=== PATIENT | male | born 1945 | race Caucasian/White ===

== ENCOUNTER 2022-05-09 17:20 | Inpatient (IN) | payer MEDICARE, OTHER ==
[~2022-05-09] VITALS: Ht 152.4 cm; Wt 62.1 kg
[2022-05-09] MEDS ORDERED: HYDROCODONE/APAP 5-325MG TABLET PO PRN (18:00)
[2022-05-09] MEDS ORDERED: ONDANSETRON 4 MG/2 ML VIAL IV PRN (18:00)
[2022-05-09] MEDS ORDERED: ACETAMINOPHEN 325 MG TABLET PO PRN (18:00)
[2022-05-09] MEDS ORDERED: MORPHINE SULFATE 2 MG/1 ML DISP.SYRIN IV PRN (18:00)
[2022-05-09] MEDS ORDERED: ZOLPIDEM 5 MG TABLET PO PRN (18:00)
[2022-05-09] MEDS ORDERED: REMEDY ESSENTIAL ZINC PASTE 113 GM TP PRN (18:00)
[2022-05-09] MEDS ORDERED: MAGNESIUM HYDROXIDE 30 ML LIQUID UDC PO PRN (18:00)
[2022-05-09] MEDS ORDERED: DEXTROSE 50% 50 ML DISP.SYRIN IV PRN (18:15)
[2022-05-09] MEDS ORDERED: INSULIN REGULAR, HUMAN 300 UNIT/3 ML VIAL SQ PRN (18:15)
[2022-05-09 21:00] VITALS: BP 140/82
[2022-05-09] MEDS ORDERED: CEFTRIAXONE 1 G in IV DEXTROSE 5% 50 ML IV SCH (21:00)
[2022-05-09] MEDS: BLOOD SUGAR DIAGNOSTIC 1 EACH STRIP VI SCH (21:00)
[2022-05-10 05:00] VITALS: BP 120/77
[2022-05-10] MEDS: PANTOPRAZOLE SODIUM 40 MG TABLET.DR PO SCH (06:17)
[2022-05-10 07:04] LABS: MEAN CORPUSCULAR HEMOGLOBIN 29.7 uug (23.8-33.4); MEAN CORPUSCULAR VOLUME 89.3 fL (73.0-96.2); PLATELET COUNT (AUTO) 290 K/uL (152-348)
--- NOTE | 2022-05-10 07:30 | NUR ---
REPORT GIVEN TO MERA ASH
[2022-05-10] MEDS: BLOOD SUGAR DIAGNOSTIC 1 EACH STRIP VI SCH ×4 (07:41→21:47)
[2022-05-10 07:52] LABS: BILIRUBIN,DIRECT 0.1 mg/dL (0.0-0.2); BILIRUBIN,TOTAL 0.4 mg/dL (0.2-1.0); CREATININE 1.2 mg/dL (0.6-1.3); PHOSPHOROUS 4.9 mg/dL (2.5-4.9); POTASSIUM 4.3 mmol/L (3.5-5.1); TOTAL PROTEIN, SERUM 8.3 g/dL (6.4-8.2)
[2022-05-10 08:17] LABS: THYROID STIMULATING HORMONE 7.147 mIU/mL (0.358-3.740)
[2022-05-10] MEDS ORDERED: MECLIZINE HCL 25 MG TABLET PO PRN (08:45)
[2022-05-10] MEDS ORDERED: CEFTRIAXONE 1 G in IV DEXTROSE 5% 50 ML IV SCH ×2 (09:00→21:00)
[2022-05-10] MEDS ORDERED: ENOXAPARIN SODIUM 40 MG/0.4 ML DISP.SYRIN SQ SCH (09:00)
--- NOTE | 2022-05-10 10:19 | NUR ---
troponin reported to dr mclean
[2022-05-10] MEDS: DOXYCYCLINE HYCLATE 100 MG TABLET PO SCH ×2 (10:36→20:39)
[2022-05-10 11:57] VITALS: BP 134/70
[2022-05-10 15:51] VITALS: BP 135/78
[2022-05-10] MEDS ORDERED: RIVA20TA PO (17:07)
[2022-05-10] MEDS ORDERED: METF-440 PO (17:07)
[2022-05-10] MEDS ORDERED: LOVA20TA2 PO (17:07)
[2022-05-10] MEDS ORDERED: LOSA25TA27 PO (17:07)
[2022-05-10] MEDS ORDERED: FURO40TA5 PO (17:07)
[2022-05-10] MEDS ORDERED: POTA8TAB3 PO (17:07)
[2022-05-10 20:00] VITALS: BP 115/62
[2022-05-11] VITALS: BP 138/72
[2022-05-11 04:00] VITALS: BP 122/73
[2022-05-11] MEDS: PANTOPRAZOLE SODIUM 40 MG TABLET.DR PO SCH (06:13)
[2022-05-11] MEDS: BLOOD SUGAR DIAGNOSTIC 1 EACH STRIP VI SCH ×2 (07:20→11:30)
[2022-05-11 08:18] LABS: CARBON DIOXIDE 26 mmol/L (21-32); CHLORIDE 103 mmol/L (98-107); CREATININE 1.4 mg/dL (0.6-1.3); GLUCOSE 98 mg/dL (74-106); POTASSIUM 4.3 mmol/L (3.5-5.1); UREA NITROGEN, BLOOD 34 mg/dL (7-18)
[2022-05-11] MEDS: DOXYCYCLINE HYCLATE 100 MG TABLET PO SCH (09:32)
[2022-05-11 11:36] VITALS: BP 143/71
[2022-05-11] MEDS ORDERED: FURO-151 PO (11:53)
[2022-05-11] MEDS ORDERED: POTA10CA43 PO (11:53)
[2022-05-11 15:46] VITALS: BP 140/88
[2022-05-11] MEDS ORDERED: RIVAROXABAN 15 MG TABLET PO SCH (18:00)
[2022-05-11] MEDS ORDERED: RIVAROXABAN 10 MG TABLET PO SCH (18:00)
--- NOTE | 2022-05-11 18:30 | NUR ---
PATIENT DISCHARGED HOME TRANSPORTED BY FAMILY. SON AND DAUGHTER. D/C INSTRUCTIONS GIVEN. PT TO FOLLOW UP WITH PCP HEP LOCK REMOVED PRIOR TO DISCHARGE.
== END 2022-05-11 16:55 | disposition home or self-care (01) | DRG 280 ==
LOC: TELE3 20:02 → MEDSURG3 05-11 10:13
PROVIDERS: ADMIT Nurse Practitioner Acute Care; ATTEND Nurse Practitioner Acute Care
DX: I95.1 Orthostatic hypotension (principal); I21.A1 Myocardial infarction type 2; U07.1 COVID-19; I48.20 Chronic atrial fibrillation, unspecified; J84.9 Interstitial pulmonary disease, unspecified; E86.0 Dehydration; E03.9 Hypothyroidism, unspecified; E11.9 Type 2 diabetes mellitus without complications; E78.5 Hyperlipidemia, unspecified; I10 Essential (primary) hypertension; I25.10 Atherosclerotic heart disease of native coronary artery without angina pectoris; Z79.01 Long term (current) use of anticoagulants; Z86.73 Personal history of transient ischemic attack (TIA), and cerebral infarction without residual deficits; F10.21 Alcohol dependence, in remission; H81.10 Benign paroxysmal vertigo, unspecified ear; Z79.84 Long term (current) use of oral hypoglycemic drugs
CPT/HCPCS: 36415; 71045; 71250; 83735; 84100; 84443; 84484; 85025; 93005; 93307; 93880; A4663; G0378; J0696; J1650; J1815